=== PATIENT | male | born 1970 | race African-American/Black ===

== ENCOUNTER 2023-12-12 11:16 | Emergency (ER) | payer SELFPAY ==
[~2023-12-12] VITALS: Ht 190.5 cm; Wt 108.0 kg
[2023-12-12 11:18] VITALS: O2SAT 99
[2023-12-12 11:52] VITALS: BP 156/91; PULSE 61; RESP 20; TEMP 98
== END 2023-12-12 13:04 | disposition left against medical advice (07) ==
LOC: ER 12:46
DX: R68.89 Other general symptoms and signs (principal); Z53.21 Procedure and treatment not carried out due to patient leaving prior to being seen by health care provider